=== PATIENT | male | born 1965 | race Caucasian/White ===

== ENCOUNTER 2018-07-01 15:19 | Emergency (ER) | payer MEDICARE, OTHER ==
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
== END 2018-07-01 16:25 | disposition home or self-care (01) ==
LOC: ER 15:19
DX: S61.012A Laceration without foreign body of left thumb without damage to nail, initial encounter (principal); Z88.0 Allergy status to penicillin; W26.8XXA Contact with other sharp object(s), not elsewhere classified, initial encounter; Y93.89 Activity, other specified; Y92.89 Other specified places as the place of occurrence of the external cause; Y99.8 Other external cause status
CPT/HCPCS: 12001; Z7502